=== PATIENT | female | born 1995 | race Caucasian/White ===

== ENCOUNTER 2017-11-09 03:17 | Emergency (ER) | payer OTHER ==
[~2017-11-09] VITALS: Ht 162.6 cm; Wt 175.0 kg
[2017-11-09] MEDS ORDERED: ONDANSETRON ODT 4 MG ONE (03:45)
[2017-11-09] MEDS ORDERED: ONDANSETRON ODT 4 MG PO ONE (04:00)
[2017-11-09 08:57] VITALS: BP 130/70
== END 2017-11-09 08:59 | disposition home or self-care (01) ==
LOC: ED 05:07
DX: F10.120 Alcohol abuse with intoxication, uncomplicated (principal)
CPT/HCPCS: 99283; Q0162

== ENCOUNTER 2021-01-11 10:12 | Emergency (ER) | payer MEDICAID ==
[~2021-01-11] VITALS: Ht 162.6 cm; Wt 82.3 kg
[2021-01-11] MEDS ORDERED: ONDANSETRON ODT 4 MG ONE (10:47)
--- NOTE | 2021-01-11 10:54 | NUR ---
PT C/O NAUSEA, VOMTING, DIZZINESS, AND WEAKNESS SINCE LAST NIGHT. PT ALSO HAS NUMBESS IN HER HANDS AND FEET FOR 2 WEEKS. PT DENIES ABD PAIN, DIARRHEA, FEVERS, OR CP.
[2021-01-11] MEDS ORDERED: ONDANSETRON ODT 4 MG PO ONE (11:00)
[2021-01-11 11:03] LABS: BASOPHILS % (AUTO) 1 % (0-1); EOSINOPHILS % (AUTO) 7 % (1-7); LYMPHOCYTES % (AUTO) 40 % (22-44); MEAN CORPUSCULAR HEMOGLOBIN 31.5 pg (27.0-34.8); MEAN CORPUSCULAR HGB CONC 34.8 g/dL (32.4-35.8); MEAN PLATELET VOLUME 6.5 fL (7.4-10.4); MONOCYTES % (AUTO) 7 % (2-9); NEUTROPHILS % (AUTO) 45 % (42-75); PLATELET COUNT 384 x10^3/uL (130-400); RED BLOOD COUNT 5.23 x10^6/uL (3.82-5.3); RED CELL DISTRIBUTION WIDTH 12.2 % (9.6-15.2)
[2021-01-11 11:09] LABS: MD NO
[2021-01-11 11:13] LABS: ALBUMIN 4.1 g/dL (3.4-5.0); ANION GAP 7 mmol/L (5-15); CALCIUM 9.1 mg/dL (8.5-10.1); CHLORIDE 108 mmol/L (98-107)
[2021-01-11 11:19] LABS: ALANINE AMINOTRANSFERASE 40 U/L (12-78); ALKALINE PHOSPHATASE 86 U/L (45-117); BILIRUBIN,TOTAL 0.9 mg/dL (0.2-1.0); CREATININE 1.01 mg/dL (0.55-1.02)
[2021-01-11 12:29] VITALS: BP 131/90
== END 2021-01-11 12:43 | disposition home or self-care (01) ==
LOC: ED 11:29
DX: R42 Dizziness and giddiness (principal); R11.2 Nausea with vomiting, unspecified; R53.1 Weakness; R94.31 Abnormal electrocardiogram [ECG] [EKG]
CPT/HCPCS: 36415; 80053; 84703; 85025; 93005; 99284; Q0162